=== PATIENT | female | born 1965 | race Asian ===

== ENCOUNTER 2017-09-14 03:31 | Inpatient (IN) | payer OTHER ==
[~2017-09-14] VITALS: Ht 154.9 cm; Wt 77.7 kg
[2017-09-14] MEDS ORDERED: MAALOX/HYOSCYAMINE/LIDOCAINE 45 ML BTL PO ONE (04:00)
[2017-09-14] MEDS ORDERED: HYDROcodone/APAP 5/325 TABLET PO ONE (04:00)
[2017-09-14] MEDS ORDERED: ONDANSETRON ODT 8 MG PO ONE (04:00)
[2017-09-14] MEDS ORDERED: ONDANSETRON ODT 4 MG ONE (04:12)
[2017-09-14] MEDS ORDERED: HYDROcodone/APAP 5/325 TABLET ONE (04:13)
[2017-09-14] MEDS ORDERED: MAALOX/HYOSCYAMINE/LIDOCAINE 45 ML BTL ONE (04:13)
[2017-09-14 04:30] LABS: BASOPHILS # (AUTO) 0.04 x10^3/uL (0-0.1); BASOPHILS % (AUTO) 0 % (0-1); EOSINOPHILS # (AUTO) 0.05 x10^3/uL (0-0.4); EOSINOPHILS % (AUTO) 1 % (1-7); LYMPHOCYTES # (AUTO) 1.41 x10^3/uL (1-3.4); LYMPHOCYTES % (AUTO) 14 % (22-44); MD NO; MEAN CORPUSCULAR HEMOGLOBIN 30.3 pg (27.0-34.8); MEAN CORPUSCULAR HGB CONC 33.3 g/dL (32.4-35.8); MEAN CORPUSCULAR VOLUME 91.1 fL (80-100); MEAN PLATELET VOLUME 8.3 fL (7.4-10.4); MONOCYTES # (AUTO) 0.21 x10^3/uL (0.2-0.8); MONOCYTES % (AUTO) 2 % (2-9); NEUTROPHILS # (AUTO) 8.26 x10^3/uL (1.8-6.8); NEUTROPHILS % (AUTO) 83 % (42-75); PLATELET COUNT 347 x10^3/uL (130-400); RED BLOOD COUNT 4.67 x10^6/uL (3.82-5.3); RED CELL DISTRIBUTION WIDTH 13.6 % (9.6-15.2)
[2017-09-14] MEDS ORDERED: ONDANSETRON ODT 8 MG ONE (04:30)
[2017-09-14 04:44] LABS: ALANINE AMINOTRANSFERASE 26 U/L (12-78); ALBUMIN 3.5 g/dL (3.4-5.0); ANION GAP 9 mmol/L (5-15); CALCIUM 8.1 mg/dL (8.5-10.1); CHLORIDE 103 mmol/L (98-107)
[2017-09-14 04:46] LABS: CREATININE 0.83 mg/dL (0.55-1.02)
[2017-09-14 04:47] LABS: ALKALINE PHOSPHATASE 71 U/L (45-117); BILIRUBIN,TOTAL 0.3 mg/dL (0.2-1.0); TOTAL PROTEIN 7.9 g/dL (6.4-8.2)
[2017-09-14 05:13] LABS: MICROSCOPIC NOT IND
[2017-09-14 05:14] LABS: CULTURE INDICATED? NO
[2017-09-14] MEDS ORDERED: MORPHINE SULFATE 4 MG/ML, 1ML ONE (05:15)
[2017-09-14] MEDS ORDERED: SODIUM CHLORIDE 0.9% 1,000 ML IV ONE (05:21)
[2017-09-14] MEDS ORDERED: SODIUM CHLORIDE 0.9% 1,000ML IVBOLUS ONE (05:30)
[2017-09-14] MEDS ORDERED: PROMETHAZINE 25 MG/ML, 1ML IM PRN (05:30)
[2017-09-14] MEDS ORDERED: MORPHINE SULFATE 4 MG/ML, 1ML IVPush PRN (05:30)
[2017-09-14] MEDS ORDERED: SODIUM CHLORIDE FLUSH 10ML SYR IVF ONE (05:30)
[2017-09-14] MEDS ORDERED: HYDROmorphone 1 MG/ML, 1ML IVPush PRN (05:30)
[2017-09-14] MEDS ORDERED: ONDANSETRON 2MG/ML, 2ML IVPush PRN ×2 (05:30→10:00)
[2017-09-14] MEDS ORDERED: SODIUM CHLORIDE FLUSH 10ML SYR IVF PRN (05:30)
[2017-09-14 06:05] VITALS: BP 128/74
[2017-09-14 07:01] VITALS: BP 121/70
[2017-09-14 08:18] LABS: HCG UR SG 1.021 (1.003-1.030)
[2017-09-14] MEDS ORDERED: EPINEPHRINE 1 MG/ML, 1ML ONE (08:41)
[2017-09-14] MEDS ORDERED: BUPIVACAINE/PF 0.5% ONE (08:41)
[2017-09-14] MEDS ORDERED: FENTANYL PF 250 MCG/5ML ONE (08:52)
[2017-09-14] MEDS ORDERED: NEOSTIGMINE 1 MG/ML, 10ML ONE (08:57)
[2017-09-14] MEDS ORDERED: DEXAMETHASONE 4 MG/ML, 5ML ONE (08:57)
[2017-09-14] MEDS ORDERED: ONDANSETRON 2MG/ML, 2ML ONE (08:57)
[2017-09-14] MEDS ORDERED: ROCURONIUM 10 MG/ML,10ML ONE (08:57)
[2017-09-14] MEDS ORDERED: PROPOFOL 10 MG/ML, 20ML ONE (08:57)
[2017-09-14] MEDS ORDERED: SUCCINYLCHOLINE 20 MG/ML, 10ML ONE (08:57)
[2017-09-14] MEDS ORDERED: CEFOTETAN 2 GM ONE (08:57)
[2017-09-14] MEDS ORDERED: LIDOCAINE-MPF 1%, 5ML ONE (08:57)
[2017-09-14] MEDS ORDERED: EPHEDRINE 50 MG/ML, 1ML ONE (08:57)
[2017-09-14] MEDS ORDERED: KETOROLAC 30 MG/1 ML ONE (08:57)
[2017-09-14] MEDS ORDERED: THROMBIN 5,000 UNIT VIAL TP ONE (09:42)
[2017-09-14] MEDS ORDERED: OXYcodone 5 MG/5 ML ORAL.SOL UDC PO PRN (10:00)
[2017-09-14] MEDS ORDERED: hydrALAzine 20 MG/ML, 1ML IV PRN ×2 (10:00→12:00)
[2017-09-14] MEDS ORDERED: LABETALOL 5MG/ML, 20ML IV PRN (10:00)
[2017-09-14] MEDS ORDERED: ACETAMINOPHEN 325 MG TABLET PO PRN ×2 (10:00→12:00)
[2017-09-14] MEDS ORDERED: morphine SULFATE 10 MG/ML, 1ML IV PRN ×2 (10:00→12:00)
[2017-09-14] MEDS ORDERED: ACETAMINOPHEN 650 MG/20.3 ML UDC ONE (10:26)
[2017-09-14] MEDS ORDERED: OXYcodone 5 MG/5 ML ORAL.SOL UDC ONE (10:27)
[2017-09-14] MEDS ORDERED: ACETAMINOPHEN 325 MG TABLET ONE (10:27)
[2017-09-14] MEDS ORDERED: FENTANYL PF 100 MCG/2ML ONE (10:27)
[2017-09-14] MEDS: FENTANYL PF 100 MCG/2ML IV PRN ×4 (10:31→11:07)
[2017-09-14 11:35] VITALS: BP 123/74
[2017-09-14] MEDS ORDERED: ACETAMINOPHEN 650 MG SUPP PR PRN (12:00)
[2017-09-14] MEDS ORDERED: ONDANSETRON ODT 4 MG PO PRN (12:00)
[2017-09-14] MEDS ORDERED: DIPHENHYDRAMINE 50 MG/ML, 1ML IV PRN (12:00)
[2017-09-14] MEDS ORDERED: DIPHENHYDRAMINE 25 MG CAPSULE PO PRN (12:00)
[2017-09-14] MEDS ORDERED: ENOXAPARIN 40 MG/0.4 ML SQ SCH (12:00)
[2017-09-14] MEDS ORDERED: ONDANSETRON 2MG/ML, 2ML IV PRN (12:00)
[2017-09-14 12:15] VITALS: BP 129/72
[2017-09-14] MEDS: LACTATED RINGERS 1,000 ML IV SCH ×2 (13:02→21:28)
[2017-09-14] MEDS: KETOROLAC 30 MG/1 ML IV PRN (19:19)
[2017-09-14 20:08] VITALS: BP 136/74
[2017-09-15] MEDS: KETOROLAC 30 MG/1 ML IV PRN ×2 (00:59→08:32)
[2017-09-15 01:01] VITALS: BP 117/69
[2017-09-15] MEDS: LACTATED RINGERS 1,000 ML IV SCH (03:51)
[2017-09-15 04:36] VITALS: BP 104/51
[2017-09-15 08:26] VITALS: BP 126/72
[2017-09-15] MEDS ORDERED: DOCU-131 PO (08:48)
[2017-09-15] MEDS ORDERED: ONDA4TAB7 PO (08:48)
[2017-09-15] MEDS ORDERED: HYDR-3240 PO (08:48)
== END 2017-09-15 09:39 | disposition home or self-care (01) | DRG 419 ==
LOC: ED 05:34 → 4NOR 05:53 → ED 05:54 → 4NOR 05:55 → DCLOUNGE 09-15 09:32
PROVIDERS: ADMIT Surgery; ATTEND Surgery
PROC: 0DNU4ZZ Release Omentum, Percutaneous Endoscopic Approach (ICD-10-PCS; 2017-09-14)
PROC: 0FT44ZZ Resection of Gallbladder, Percutaneous Endoscopic Approach (ICD-10-PCS; principal; 2017-09-14 08:30)
DX: K80.10 Calculus of gallbladder with chronic cholecystitis without obstruction (principal); K66.0 Peritoneal adhesions (postprocedural) (postinfection)
CPT/HCPCS: 36415; 76700; 80053; 81003; 81025; 83690; 85025; 88304; 93005; 96374; J0171; J1100; J1885; J2405; J2704; J2710; J3010; J3490; Q0162; J0330; J1200; J2270; J7030; J7120; S0074